=== PATIENT | female | born 1990 | race Caucasian/White ===

== ENCOUNTER 2016-10-02 00:45 | Emergency (ER) | payer MEDICAID ==
[~2016-10-02] VITALS: Ht 160 cm; Wt 63.6 kg
[2016-10-02] MEDS ORDERED: LORazepam 2 MG/ML, 1ML ONE (01:22)
[2016-10-02] MEDS ORDERED: SODIUM CHLORIDE FLUSH 10ML SYR IVF ONE (01:30)
[2016-10-02] MEDS ORDERED: SODIUM CHLORIDE 0.9% 1,000ML IVBOLUS ONE (01:30)
[2016-10-02] MEDS ORDERED: LORazepam 2 MG/ML, 1ML IVPush ONE (01:30)
[2016-10-02] MEDS ORDERED: NORE-46 PO (01:36)
[2016-10-02 02:17] LABS: ASPARTATE AMINO TRANSFERASE 16 U/L (15-37); BLOOD UREA NITROGEN 11 mg/dL (7-18)
[2016-10-02 02:34] LABS: DAU SCREEN DISCLAIMER
[2016-10-02 04:16] VITALS: BP 138/86
== END 2016-10-02 04:19 | disposition home or self-care (01) ==
LOC: ED 03:30
DX: R56.9 Unspecified convulsions (principal)
CPT/HCPCS: 36415; 70450; 80053; 80307; 84703; 85025; 93005; 96361; 96374; 99285; J2060; J7030

== ENCOUNTER 2018-08-19 21:13 | Emergency (ER) | payer BC, MEDICAID ==
[~2018-08-19] VITALS: Ht 160 cm; Wt 56.7 kg
[~2018-08-19 21:13] MED LIST: NORE-46 PO
--- NOTE | 2018-08-19 22:07 | NUR ---
Note rivas in EDM - 08/19/18 at 2237 by VIC R SIDED FACIAL NUMBNESS AND SLURRED SPEECH X ONE HOUR. SYMPTOMS RESOLVED AFTER 30MIN. SPEECH CLEAR, FACE SYMMETRICAL. PT AMBULATORY TO TRIAGE. MONIORS APPLIED, SIDERAILSUP X2, CALLLIGHT WITHIN REACH
[2018-08-19] MEDS ORDERED: LEVE100S6 PO (22:08)
[2018-08-19] MEDS ORDERED: BIRTH CONTROL (22:08)
[2018-08-19] MEDS ORDERED: ACETAMINOPHEN 500 MG TABLET ONE (22:54)
[2018-08-19] MEDS ORDERED: PROCHLORPERAZINE 5 MG/ML, 2ML ONE (22:55)
--- NOTE | 2018-08-19 22:56 | NUR ---
PT UP TO RR WITH STEADY GAIT
[2018-08-19] MEDS ORDERED: PROCHLORPERAZINE 5 MG/ML, 2ML IVPush ONE (23:00)
[2018-08-19] MEDS ORDERED: SODIUM CHLORIDE 0.9% 1,000ML IVBOLUS ONE (23:00)
[2018-08-19] MEDS ORDERED: ACETAMINOPHEN 500 MG TABLET PO ONE (23:00)
[2018-08-19 23:19] LABS: BASOPHILS # (AUTO) 0.04 x10^3/uL (0-0.1); BASOPHILS % (AUTO) 1 % (0-1); EOSINOPHILS # (AUTO) 0.05 x10^3/uL (0-0.4); EOSINOPHILS % (AUTO) 1 % (1-7); LYMPHOCYTES # (AUTO) 2.72 x10^3/uL (1-3.4); LYMPHOCYTES % (AUTO) 43 % (22-44); MD NO; MEAN CORPUSCULAR HEMOGLOBIN 31.7 pg (27.0-34.8); MEAN CORPUSCULAR HGB CONC 33.2 g/dL (32.4-35.8); MEAN CORPUSCULAR VOLUME 95.4 fL (80-100); MEAN PLATELET VOLUME 7.5 fL (7.4-10.4); MONOCYTES # (AUTO) 0.39 x10^3/uL (0.2-0.8); MONOCYTES % (AUTO) 6 % (2-9); NEUTROPHILS # (AUTO) 3.14 x10^3/uL (1.8-6.8); NEUTROPHILS % (AUTO) 50 % (42-75); PLATELET COUNT 282 x10^3/uL (130-400); RED CELL DISTRIBUTION WIDTH 12.7 % (9.6-15.2)
--- NOTE | 2018-08-19 23:19 | NUR ---
PT TO CT
[2018-08-19 23:29] VITALS: BP 107/63
[2018-08-19 23:31] LABS: ALBUMIN 3.8 g/dL (3.4-5.0); ANION GAP 8 mmol/L (5-15); CALCIUM 8.7 mg/dL (8.5-10.1); CHLORIDE 111 mmol/L (98-107); CREATININE 0.86 mg/dL (0.55-1.02)
--- NOTE | 2018-08-20 00:46 | NUR ---
TASK RN: DC EDUCATION PROVIDED, PT DEMONSTRATES UNDERSTANDING. PT AMBULATED STEADILY TO DC WITH RN AND SO. SO TO TRANSPORT PT HOME. NEURO INTACT
== END 2018-08-20 00:48 | disposition home or self-care (01) ==
LOC: ED 22:22
DX: R51 Headache (principal); R29.810 Facial weakness
CPT/HCPCS: 36415; 70450; 80048; 82040; 84703; 85025; 93005; 96374; 99284; J0780; J7030